=== PATIENT | female | born 1960 | race Caucasian/White ===

== ENCOUNTER 2019-05-10 14:19 | Emergency (ER) | payer BC ==
--- NOTE | 2019-05-10 15:08 | EKG REPORT ---
SEVERITY:- ABNORMAL ECG - SINUS RHYTHM ATRIAL PREMATURE COMPLEX PROBABLE LEFT ATRIAL ABNORMALITY BORDERLINE INFERIOR Q WAVES BORDERLINE PROLONGED QT INTERVAL : Confirmed by: Christo Jhaveri MD 10-May-2019 15:07:43
[2019-05-10 15:09] LABS: ABSOLUTE BASOPHILS # (AUTO) 0.2 10^3/uL (0.0-0.2); ABSOLUTE EOSINOPHILS # (AUTO) 0.3 10^3/uL (0.0-0.6); ABSOLUTE LYMPHOCYTES (AUTO) 2.6 10^3/uL (0.5-4.7); ABSOLUTE MONOCYTES (AUTO) 0.7 10^3/uL (0.1-1.4); ABSOLUTE NEUT (AUTO) 5.4 10^3/uL (1.7-8.2); BASOPHILS % (AUTO) 2.1 % (0-2); HEMATOCRIT 42.5 % (36.0-47.0); HEMOGLOBIN 15.2 g/dL (12.0-15.5); MEAN CORPUSCULAR HEMOGLOBIN 27.8 pg (27.0-33.4); MEAN CORPUSCULAR HGB CONC 35.7 g/dL (32.0-36.0); MEAN CORPUSCULAR VOLUME 78 fl (80-97); MONOCYTES % (AUTO) 7.8 % (3-13); PLATELET COUNT 297 10^3/uL (150-450); RED BLOOD COUNT 5.46 10^6/uL (3.72-5.28); RED CELL DISTRIBUTION WIDTH 14.8 % (11.5-14.0); SEGMENTED NEUTROPHILS % (AUTO) 59.1 % (42-78); TOTAL CELLS COUNTED % (AUTO) 100 %; WHITE BLOOD COUNT 9.2 10^3/uL (4.0-10.5)
--- NOTE | 2019-05-10 15:23 | RADIOLOGY REPORT (SQ) ---
EXAM DESCRIPTION: CHEST 2 VIEWS COMPLETED DATE/TIME: 05/10/2019 3:08 pm REASON FOR STUDY: Chest pain, palpitations, shortness of breath COMPARISON: None. EXAM PARAMETERS: NUMBER OF VIEWS: two views TECHNIQUE: Digital Frontal and Lateral radiographic views of the chest acquired. RADIATION DOSE: NA LIMITATIONS: none FINDINGS: LUNGS AND PLEURA: No opacities, masses or pneumothorax. No pleural effusion. MEDIASTINUM AND HILAR STRUCTURES: No masses or contour abnormalities. HEART AND VASCULAR STRUCTURES: Heart normal size. No evidence for failure. BONES: No acute findings. HARDWARE: Clips right upper quadrant post cholecystectomy OTHER: No other significant finding. IMPRESSION: NO ACUTE RADIOGRAPHIC FINDING IN THE CHEST. TECHNICAL DOCUMENTATION: JOB ID: [id number] [employer]- All Rights Reserved Reading location - IP/workstation name: [email or web address]
[2019-05-10 15:34] LABS: ALKALINE PHOSPHATASE 101 U/L (38-126); ANION GAP 13 (5-19); ASPARTATE AMINO TRANSFERASE 36 U/L (14-36); BILIRUBIN,DIRECT 0.1 mg/dL (0.0-0.4); BILIRUBIN,TOTAL 0.5 mg/dL (0.2-1.3); BLOOD UREA NITROGEN 17 mg/dL (7-20); CALCIUM 9.6 mg/dL (8.4-10.2); CARBON DIOXIDE 27 mmol/L (22-30); CHLORIDE 94 mmol/L (98-107); CREATINE KINASE 30 U/L (30-135); GLUCOSE 200 mg/dL (75-110); TOTAL PROTEIN 6.7 g/dL (6.3-8.2)
[2019-05-10 15:51] LABS: CREATINE KINASE MB < 0.22 ng/mL (<4.55); TROPONIN I < 0.012 ng/mL
--- NOTE | 2019-05-10 18:44 | ER Document Report ---
ED General - General Chief Complaint: Palpitations Stated Complaint: HEART PALPITATIONS Time Seen by Provider: 05/10/19 18:21 Primary Care Provider: HEATH STONE MD [Primary Care Provider] - Follow up as needed - HPI Notes: Patient is a 4-year-old male who presents emergency department for evaluation of palpitations. She states that she has had these in the past, but they usually only last for seconds. Starting last evening that lasted about a half an hour. She states that they would resolve without intervention. She said multiple episodes, since then, that have lasted up to several hours. She denies any symptoms at this time. She states she feels somewhat short of breath with these palpitations, but she states she has chronic shortness of breath for the last several years. She also states that she feels paresthesias across her mouth, anterior chest wall, and bilateral arms with this. At this time she denies any symptoms. She states that she has had her thyroid tested lately. It was all normal. She has had no recent medication changes, has been taking all of her medications as prescribed. - Related Data Allergies/Adverse Reactions: Sulfa (Sulfonamide Antibiotics) Allergy (Verified 09/26/11 22:38) Home Medications: List reviewed, please see notes Past Medical History - General Information source: Patient - Social History Smoking Status: Former Smoker Family History: Reviewed & Not Pertinent Patient has suicidal ideation: No Patient has homicidal ideation: No - Past Medical History Cardiac Medical History: Reports: Hx Hypertension, Other - History of an unknown arrhythmia, status post ablation Endocrine Medical History: Reports: Hx Diabetes Mellitus Type 2 GI Medical History: Reports: Hx Gastroesophageal Reflux Disease Past Surgical History: Reports: Hx Section, Hx Hysterectomy - Immunizations Hx Diphtheria, Pertussis, Tetanus Vaccination: No Review of Systems - Review of Systems Constitutional: No symptoms reported EENT: No symptoms reported Cardiovascular: See HPI Respiratory: No symptoms reported Gastrointestinal: No symptoms reported Genitourinary: No symptoms reported Musculoskeletal: No symptoms reported Skin: No symptoms reported Neurological/Psychological: See HPI Physical Exam - Vital signs Vitals: Resp Pulse Ox 18 98 05/10/19 14:32 05/10/19 14:32 - Notes Notes: Vital signs reviewed, please refer to chart. Head is normocephalic, atraumatic. Pupils equal round, reactive to light. Neck is supple without meningismus. Heart is regular rate and rhythm. Lungs are clear to auscultation bilaterally. Abdomen is soft, nontender, normoactive bowel sounds throughout. Extremities without cyanosis, clubbing. Posterior calves are nontender. Peripheral pulses are equal. Skin is warm and dry. Patient is awake, alert, oriented x3. Cranial nerves II - XII are grossly intact without focal neurological deficits. Strength is plus 5 out of 5 bilateral upper and lower extremities. Sensation is intact. Reflexes symmetrical. Intact [id number], rapid alternating movements, [id number]. Course - Re-evaluation Re-evalutation: 05/10/19 18:42 Patient presents emergency department for evaluation. Laboratory investigations were obtained. Potassium was found to be low. Awaiting for magnesium level, will replace potassium. Second troponin is negative as well. Patient is stable. Patient's heart rate is in the 90s, despite being on Cardizem and meto prolol at home. I do believe that an echocardiogram and further cardiac evaluation as an outpatient is appropriate. She already follows with cardiology. She is to return to the ED with worsening or new concerning symptoms of any sort. 05/10/19 19:07 Patient's potassium was found to be low, magnesium normal. Potassium replaced orally. We will send her home with a small amount of prescription potassium and instructions to have this followed up with her primary care provider this week. - Vital Signs Vital signs: Temp Pulse Resp BP Pulse Ox 98 F 14 142/75 H 95 05/10/19 14:47 05/10/19 18:01 05/10/19 18:01 05/10/19 18:01 - Laboratory Result Diagrams: 05/10/19 14:56 05/10/19 14:56 Laboratory results interpreted by me: 05/10/19 05/10/19 14:56 14:56 RBC 5.46 H MCV 78 L RDW 14.8 H Baso % (Auto) 2.1 H Sodium 134.4 L Potassium 3.0 L* Chloride 94 L Glucose 200 H - Diagnostic Test Radiology reviewed: Reports reviewed Radiology results interpreted by me: 05/10/19 18:44 Chest X-Ray 05/10/19 00:00 IMPRESSION: NO ACUTE RADIOGRAPHIC FINDING IN THE CHEST. - EKG Interpretation by Me Additional EKG results interpreted by wv: 05/10/19 18:44 Sinus mechanism with a rate of 88 bpm, PAC noted. Normal axis. Borderline prolonged QT interval. Nonspecific ST changes, but no acute changes concerning for ischemia or infarction. 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 Continue your home medications as prescribed. Return to the emergency department with worsening or new concerning symptoms of any sort. Referrals: HEATH STONE MD [Primary Care Provider] - Follow up as needed
[2019-05-10] MEDS ORDERED: POTASSIUM CHLORIDE 10 MEQ TABLET.ER PO ONE (19:06)
[2019-05-10 19:21] VITALS: BP 132/64
== END 2019-05-10 19:28 | disposition home or self-care (01) ==
LOC: ER 14:19
DX: R00.2 Palpitations (principal); E87.6 Hypokalemia; E11.9 Type 2 diabetes mellitus without complications; I10 Essential (primary) hypertension; Z88.2 Allergy status to sulfonamides; Z90.710 Acquired absence of both cervix and uterus
CPT/HCPCS: 36415; 71046; 80053; 82550; 82553; 83735; 84484; 85025; 93005; 93010; 99285